=== PATIENT | female | born 1960 | race Caucasian/White ===

== ENCOUNTER 2020-11-23 18:03 | Emergency (ER) | payer SELFPAY ==
[2020-11-23] MEDS ORDERED: HYDROcodone/Acetaminophen 5/325 mg Tablet ONE (18:27)
== END 2020-11-23 19:35 | disposition home or self-care (01) ==
LOC: BURERS 18:03
DX: S62.617A Displaced fracture of proximal phalanx of left little finger, initial encounter for closed fracture (principal); I10 Essential (primary) hypertension; W19.XXXA Unspecified fall, initial encounter
CPT/HCPCS: 29125

== ENCOUNTER 2021-12-19 09:32 | Emergency (ER) | payer BC, SELFPAY ==
[2021-12-19] MEDS ORDERED: EPINEPHrine 1 MG/ML VIAL ONE (16:32)
== END 2021-12-19 11:05 | disposition home or self-care (01) ==
LOC: BURERS 09:32
DX: S92.492A Other fracture of left great toe, initial encounter for closed fracture (principal); S30.0XXA Contusion of lower back and pelvis, initial encounter; E11.9 Type 2 diabetes mellitus without complications; I10 Essential (primary) hypertension; Z79.84 Long term (current) use of oral hypoglycemic drugs; W20.8XXA Other cause of strike by thrown, projected or falling object, initial encounter; W11.XXXA Fall on and from ladder, initial encounter
CPT/HCPCS: 72100; J0171

== ENCOUNTER 2022-11-23 07:38 | Emergency (ER) | payer BC, OTHER | END 2022-11-23 08:18 | disposition home or self-care (01) | LOC: BURERS 07:38 | DX: H65.92 Unspecified nonsuppurative otitis media, left ear (principal); J30.9 Allergic rhinitis, unspecified; E11.9 Type 2 diabetes mellitus without complications; I10 Essential (primary) hypertension | CPT/HCPCS: 99282 ==

== ENCOUNTER 2024-04-24 23:10 | Emergency (ER) | payer OTHER | END 2024-04-25 00:04 | disposition home or self-care (01) | LOC: BURERS 23:10 | DX: T63.2X1A Toxic effect of venom of scorpion, accidental (unintentional), initial encounter (principal); S60.450A Superficial foreign body of right index finger, initial encounter; E11.9 Type 2 diabetes mellitus without complications; I10 Essential (primary) hypertension | CPT/HCPCS: 99282 ==